=== PATIENT | female | born 2000 | race Caucasian/White ===

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

== ENCOUNTER 2020-04-21 12:26 | Emergency (ER) | payer SELFPAY ==
[2020-04-21] MEDS ORDERED: Acetaminophen 500 MG TAB ONE (12:58)
[2020-04-21] MEDS ORDERED: Ondansetron ODT 4 MG TAB ONE (13:23)
[2020-04-21 13:32] LABS: #Basophils 0.1 thou/uL (0.0-0.2); #Eosinphils 0.1 thou/uL (0.0-0.7); #Lymphocytes 2.1 thou/uL (1.20-3.40); #Monocytes 0.4 thou/uL (0.11-0.59); #Neutrophils 4.8 thou/uL (1.40-6.50); %Basophils 1.1 % (0.0-1.0); %Eosinophils 1.3 % (0.0-10.0); %Lymphocytes 28.4 % (21.0-51.0); %Monocytes 5.7 % (0.0-10.0); %Neutrophils 63.5 % (42.0-75.0); Hemoglobin 12.6 g/dL (12.0-16.0); Mean Corpuscular HGB CONC 33.6 g/dL (32.0-36.0); Mean Corpuscular Volume 86.3 fL (78.0-98.0); Mean Platelet Volume 7.6 fL (7.4-10.4); Platelet Count 226 thou/uL (130-400); RBC Distribution Width 11.5 % (11.5-14.5); Red Blood Cell (RBC) Count 4.35 mill/uL (4.20-5.40); White Blood Cell (WBC) Count 7.6 thou/uL (4.8-10.8)
[2020-04-21 13:36] LABS: Bilirubin Negative (Negative); Blood, Urine Trace (Negative); Clarity Clear (Clear); Glucose, Urine (Dipstick) Negative (Negative); Ketone, Urine 80 mg/dL (Negative); Leukocyte Large (Negative); Nitrite Negative (Negative); Protein, Urine (Dipstick) Trace mg/dL (Neg-Trace); Urobilinogen 0.2 mg/dL (Less than 2); pH, Urine 5.5 (5.0-9.0)
[2020-04-21 13:47] LABS: Bacteria/HPF 2+ HPF (None Seen)
[2020-04-21 14:04] LABS: ALT (SGPT) 13 U/L (8-55); AST (SGOT) 13 U/L (5-34); Alkaline Phosphatase 35 U/L (40-110); Anion Gap 11 mmol/L (10-20); BUN (Urea Nitrogen) 6 mg/dL (7.0-18.7); Bilirubin, Total 0.5 mg/dL (0.2-1.2); Calc. Creatinine Clearance 0 mL/min (70-130); Calcium 8.7 mg/dL (7.8-10.44); Carbon Dioxide 21 mmol/L (22-29); Chloride 106 mmol/L (98-107); Estimated GFR-MDRD Greater than 90; Globulin 2.6 g/dL (2.4-3.5); Glucose 80 mg/dL (70-105); Potassium 3.4 mmol/L (3.5-5.1); Protein, Total 6.6 g/dL (6.0-8.3); Sodium 135 mmol/L (136-145)
== END 2020-04-21 14:10 | disposition short-term general hospital (02) ==
LOC: NAV ERS 12:26
DX: O99.891 Other specified diseases and conditions complicating pregnancy (principal); R10.32 Left lower quadrant pain; O21.9 Vomiting of pregnancy, unspecified; O20.9 Hemorrhage in early pregnancy, unspecified; Z3A.12 12 weeks gestation of pregnancy; Z79.899 Other long term (current) drug therapy
CPT/HCPCS: 80053; 81003; 81015; 84702; 85025; 99284; Q0162

== ENCOUNTER 2021-01-04 13:13 | Emergency (ER) | payer OTHER ==
[2021-01-05 06:46] LABS: SARS-CoV-2 PCR by NAA DETECTED (NotDetected)
== END 2021-01-04 13:50 | disposition home or self-care (01) ==
LOC: NAV ERS 13:13
DX: U07.1 COVID-19 (principal); J06.9 Acute upper respiratory infection, unspecified; G43.909 Migraine, unspecified, not intractable, without status migrainosus
CPT/HCPCS: 99283; U0003; U0005

== ENCOUNTER 2021-09-28 18:50 | Emergency (ER) | payer OTHER ==
[2021-09-28] MEDS ORDERED: HYDROcodone/Acetaminophen 5/325 mg Tablet ONE (20:42)
== END 2021-09-28 20:45 | disposition home or self-care (01) ==
LOC: NAV ERS 18:50
DX: S82.61XA Displaced fracture of lateral malleolus of right fibula, initial encounter for closed fracture (principal); X50.1XXA Overexertion from prolonged static or awkward postures, initial encounter; Y93.67 Activity, basketball
CPT/HCPCS: 29515

== ENCOUNTER 2022-02-01 19:56 | Emergency (ER) | payer OTHER ==
[2022-02-01] MEDS ORDERED: Ibuprofen 800 MG TAB ONE (20:18)
== END 2022-02-01 21:11 | disposition home or self-care (01) ==
LOC: NAV ERS 19:56
DX: R50.9 Fever, unspecified (principal); R19.7 Diarrhea, unspecified; R11.2 Nausea with vomiting, unspecified; Z20.822 Contact with and (suspected) exposure to COVID-19
CPT/HCPCS: 87804; U0003; U0005

== ENCOUNTER 2022-11-04 10:59 | Emergency (ER) | payer OTHER ==
[2022-11-04] MEDS ORDERED: Lidocaine 1% (PF) 30 ML VIAL ONE (11:54)
[2022-11-04] MEDS ORDERED: Bacitracin 1 PK ONE (12:13)
== END 2022-11-04 12:15 | disposition home or self-care (01) ==
LOC: NAV ERS 10:59
DX: S91.115A Laceration without foreign body of left lesser toe(s) without damage to nail, initial encounter (principal); W22.8XXA Striking against or struck by other objects, initial encounter
CPT/HCPCS: 12001; J2001

== ENCOUNTER 2025-07-06 18:57 | Emergency (ER) | payer SELFPAY ==
[2025-07-06] MEDS ORDERED: Dexamethasone 10 MG/ML VIAL ONE (19:57)
[2025-07-06] MEDS ORDERED: Ibuprofen 800 MG TAB ONE (19:57)
== END 2025-07-06 20:00 | disposition home or self-care (01) ==
LOC: NAV ERS 18:57
DX: R06.9 Unspecified abnormalities of breathing (principal)
CPT/HCPCS: 87081; 87428; 87430; 99283; J1100